=== PATIENT | female | born 1975 | race Caucasian/White ===

== ENCOUNTER 2016-06-26 15:59 | Emergency (ER) | payer BC ==
[2016-06-26 16:31] VITALS: TEMP 99
--- NOTE | 2016-06-26 16:53 | UCPHY ---
[id number] 4d 06/26/16 16:46 HPI/ROS: CHIEF COMPLAINT: Possible Q-tip and left ear HISTORY OF PRESENT ILLNESS: 41-year-old female complaining of possible retained Q-tip component in left ear after she was cleaning her ears and then could not find a piece of cotton. No hearing loss. No dizziness. Occurred prior to arrival. PHYSICAL EXAM (Prior to examination, patient consented to physical exam, hands were washed and my usual and customary physical exam procedures followed) 1) GENERAL: Well-developed, well-nourished, alert and oriented. Appears to be in no acute distress. 2) HEAD: Normocephalic 3) HEENT: sclera anicteric . Right ear clear well visualized tympanic membrane normal anatomic landmarks. Left ear: Clear, multi visualize the normal anatomic landmarks, the osseous structures and the external auditory canals clear with no foreign body, no cerumen, no signs of otitis media or externa. 4) LUNGS: Breathing comfortably. (Faraz Sherman) Constitutional: Initial Vital Signs Temperature (C) 37.2 C 06/26/16 16:26 Heart Rate 112 H 06/26/16 16:26 Respiratory Rate 16 06/26/16 16:26 Blood Pressure 139/90 H 06/26/16 16:26 O2 Sat (%) 98 06/26/16 16:26 O2 Delivery Mode Room Air Allergies/Adverse Reactions: IODINE Adverse Reaction (Uncoded 06/26/16 16:31) Hives STERIODS Adverse Reaction (Uncoded 06/26/16 16:31) PSYCHOTIC Home Medications: Medication Instructions Recorded Levothyroxine [Synthroid 50 mcg 08/16/14 (*)] Trivora-28 Tablet 08/16/14 MDM/Departure - [facility] ED Course/Re-evaluation: This patient has no foreign body in bilateral external auditory canal. (Faraz Sherman) Urgent Care PA supervision Physician documentation: The patient was evaluated and managed by the physician behavioral assistant. My co- signature indicates that I have reviewed this chart and I agree with the findings and plan of care as documented. I am the secondary supervising physician. (Miguel Cruz) - Depart Disposition: Home, Routine, Self-Care Clinical Impression: Possible retained foreign body left ear Condition: Good Instructions: Ear Foreign Body (ED) Additional Instructions: Return to the ER if you develop hearing loss, drainage, pain from ear or any other symptoms that concern to Referrals: Nancy Rush MD [Primary Care Provider] - 5-7 days, call for appt. - PQRS PQRS Measurement: n/a (Fraaz Sherman)
[2016-06-26 17:08] VITALS: BP 132/100; PULSE 99; RESP 18; O2SAT 96
== END 2016-06-26 17:01 | disposition home or self-care (01) ==
LOC: CED 15:59
DX: Z03.89 Encounter for observation for other suspected diseases and conditions ruled out (principal)
CPT/HCPCS: G0463-PO